=== PATIENT | female | born 1980 | race Caucasian/White ===

== ENCOUNTER 2016-09-07 18:01 | Emergency (ER) | payer OTHER ==
[2016-09-07 18:23] VITALS: BP 110/75; PULSE 100; TEMP 98.2; BMI 22.8
[2016-09-07] MEDS ORDERED: IBUPROFEN 600 MG TABLET (FP) PO ONE ×2 (18:24→19:06)
--- NOTE | 2016-09-07 19:25 | PDOC ---
[id number] 4d COLD SYMPTOMS Time Seen by Provider: 09/07/16 18:24 History Source: Patient Exam Limitations: No Limitations - History of Present Illness Initial Comments: 09/07/16 19:22 36-year-old female presents to the ED with URI symptoms. Patient with complaints of sore throat and body aches. Patient was assessed prior to my exam and rapid strep was ordered/sent. Patient states for the past 2-3 days has been having sore throat and possibly the back of her throat. Patient denies change in appetite but does state has difficulty swallowing solids secondary to discomfort. Patient states has been taking Motrin and Tylenol with moderate effect but does not resolve her symptoms and decided come to the ER. Patient denies medical history, recent travel, recent sick contacts. Timing/Duration: reports: getting worse Severity: reports: mild Associated Symptoms: reports: fever/chills, sore throat Past History - Past Medical History Allergies/Adverse Reactions: Allergies Allergy/AdvReac Type Severity Reaction Status Date / Time No Known Allergies Allergy Verified 09/07/16 18:20 Home Medications: Ambulatory Orders Penicillin V Potassium [Pen Vee K -] 500 mg PO BID #20 tablet 09/07/16 Anemia: No Asthma: No Cancer: No Cardiac Disorders: No CVA: No COPD: No CHF: No Dementia: No Diabetes: No GI Disorders: No Disorders: No HTN: No Hypercholesterolemia: No Liver Disease: No Seizures: No Thyroid Disease: No - Surgical History Abdominal Surgery: No Appendectomy: Yes Cardiac Surgery: No Cholecystectomy: No Lung Surgery: No Neurologic Surgery: No Orthopedic Surgery: No - Reproductive History (#): 3 Para: 2 Cervical CA: No Dysfunctional Uterine Bleeding: No Ectopic : No Endometrial CA: No Polycystic Ovaries: No Therapeutic (s) & number: No Tubal Ligation: No - Immunization History Immunization Up to Date: Yes - Psycho/Social/Smoking Cessation Hx Anxiety: No Suicidal Ideation: No Smoking Status: No Smoking History: Never smoked Have you smoked in the past 12 months: No Number of Cigarettes Smoked Daily: 0 Cigars Per Day: 0 Information on smoking cessation initiated: No Hx Alcohol Use: No Drug/Substance Use Hx: No Substance Use Type: None Patient Lives Alone: No Lives with/in: spouse/SO Review of Systems - Review of Systems Able to Perform ROS?: Yes Constitutional: Yes: Chills, Fever HEENTM: Yes: Throat Pain, Difficulty Swallowing Respiratory: No: Symptoms reported Cardiac (ROS): No: Symptoms Reported ABD/GI: No: Symptoms Reported : No: Symptoms Reported Musculoskeletal: No: Symptoms Reported Integumentary: No: Symptoms Reported Neurological: No: Symptoms reported *Physical Exam - Vital Signs Last Vital Signs Temp Pulse Resp BP Pulse Ox 98.2 F 100 H 18 110/75 100 09/07/16 18:20 09/07/16 18:20 09/07/16 18:20 09/07/16 18:20 09/07/16 18:20 - Physical Exam General Appearance: Yes: Nourished, Appropriately Dressed. No: Apparent Distress HEENT: positive: EOMI, DOR[place], TMs Normal, Tonsillar Exudate (with erythema to 2+ tonsils bilateral) Neck: positive: Supple. negative: Lymphadenopathy (R), Lymphadenopathy (L) Respiratory/Chest: positive: Lungs Clear, Normal Breath Sounds. negative: Respiratory Distress, Accessory Muscle Use Cardiovascular: positive: Regular Rhythm, Regular Rate. negative: Murmur Gastrointestinal/Abdominal: positive: Soft. negative: Tenderness Integumentary: positive: Normal Color, Warm, Moist Neurologic: positive: Motor Strength 5/5 (ambulatory) Medical Decision Making - Medical Decision Making 09/07/16 20:14 Patient with sore throat and fever/chills. Patient had rapid strep sent prior to my arrival. Patient on exam appears as tonsillitis/strep tonsillitis. Patient also ordered for Decadron secondary to edema. Results pending 09/07/16 20:36 Rapid strep still pending and patient does not want to wait. I will discharge patient home with JOSE M leonardo and told to follow-up with her PCP as needed otherwise return to ED if symptoms worsen. *DC/Admit/Observation/Transfer Diagnosis at time of Disposition: Strep tonsillitis - Discharge Dispostion Disposition: HOME Condition at time of disposition: Good - Prescriptions Prescriptions: Penicillin V Potassium [Pen Vee K -] 500 mg PO BID #20 tablet - Referrals Referrals: Delfino Ferrari MD [Primary Care Provider] - - Patient Instructions Printed Discharge Instructions: DI for Strep Throat Additional Instructions: Please take antibiotics until completed and eat soft nonabrasive foods. May take Motrin 600 mg every 8 hours for adequate fever and pain control. Return to ED if your symptoms worsen
[2016-09-07] MEDS ORDERED: DEXAMETHASONE LIQUID 0.5 MG/5 ML 240 ML BULK BOTTLE PO ONE (19:55)
[2016-09-07] MEDS ORDERED: DEXAMETHASONE SOD PHOSPHATE 10 MG/1 ML VIAL ONE (19:57)
[2016-09-07] MEDS ORDERED: AMOXICILLIN 250 MG CAPSULE ONE (20:55)
== END 2016-09-07 21:32 | disposition home or self-care (01) ==
LOC: JERFT 18:01
DX: J03.00 Acute streptococcal tonsillitis, unspecified (principal)
CPT/HCPCS: 84703; 87070; 87430; 99281-25

== ENCOUNTER 2018-02-10 05:05 | Day surgery (SDC) | payer OTHER ==
[2018-02-09 16:18] VITALS: BMI 23.1
--- NOTE | 2018-02-10 08:58 | HP ---
Admitting History and Physical - Admission Chief Complaint: Vaginal spotting in History of Present Illness: 38 yo seen yesterday c/o vaginal spotting; sonogram showed evidence of a gestational sac without pole. Patient is pre op for suction D&C. History Source: Patient Limitations to Obtaining History: No Limitations - Past Medical History ...LMP: 11/30/17 ...: Yes - Past Surgical History Past Surgical History: Yes: None - Smoking History Smoking history: Never smoked Have you smoked in the past 12 months: No Aproximately how many cigarettes per day: 0 - Alcohol/Substance Use Hx Alcohol Use: No - Social History Usual Living Arrangement: Yes: With Spouse History of Recent Travel: No Home Medications - Allergies Allergies/Adverse Reactions: Allergies Allergy/AdvReac Type Severity Reaction Status Date / Time No Known Allergies Allergy Verified 09/07/16 18:20 - Home Medications Home Medications: Ambulatory Orders 105/Iron/Folic AC/Dha [Prena1 True Combo Pack] 1 each PO DAILY Family Disease History - Family Disease History Family History: Unremarkable Review of Systems - Review of Systems Constitutional: reports: No Symptoms Eyes: reports: No Symptoms HENT: reports: No Symptoms Neck: reports: No Symptoms Cardiovascular: reports: No Symptoms Respiratory: reports: No Symptoms Gastrointestinal: reports: No Symptoms Genitourinary: reports: Other (Vaginal spotting in ) Physical Examination Vital Signs: Vital Signs Temperature 98.3 F 02/10/18 07:23 Pulse Rate 81 02/10/18 07:23 Respiratory Rate 20 02/10/18 07:23 Blood Pressure 104/64 02/10/18 07:23 O2 Sat by Pulse Oximetry (%) 98 02/10/18 07:24 Constitutional: Yes: Well Nourished Eyes: Yes: Conjunctiva Clear HENT: Yes: Atraumatic Neck: Yes: Supple Cardiovascular: Yes: Regular Rate and Rhythm Respiratory: Yes: Regular Gastrointestinal: Yes: Normal Bowel Sounds Extremities: Yes: WNL Neurological: Yes: Alert, Oriented ...Motor Strength: WNL Psychiatric: Yes: Alert, Oriented Assessment/Plan Missed Pre op for suction D&C Consent signed Anesthesia to see patient
[2018-02-10] MEDS ORDERED: MIDAZOLAM HCL 2 MG/2 ML SINGLE DOSE VIAL ONE (09:10)
[2018-02-10] MEDS ORDERED: SUCCINYLCHOLINE CHLORIDE 200 MG/10 ML VIAL ONE (09:12)
[2018-02-10] MEDS ORDERED: PROPOFOL 20 ML ONE (09:12)
--- NOTE | 2018-02-10 09:36 | OP ---
Operative Note - Note: Operative Date: 02/10/18 Pre-Operative Diagnosis: Missed Operation: Suction D&C Findings: Product of conception Post-Operative Diagnosis: Same as Pre-op Surgeon: Erinn Luciano Anesthesia: General Specimens Removed: Product of conception Estimated Blood Loss (mls): 10
[2018-02-10] MEDS ORDERED: ONDANSETRON 4 MG/2 ML VIAL IVPUSH PRN (09:51)
[2018-02-10] MEDS ORDERED: oxyCODONE HCL 5 MG TABLET PO PRN (09:51)
[2018-02-10] MEDS ORDERED: PROMETHAZINE HCL 25 MG/1 ML VIAL IVPUSH PRN (09:51)
[2018-02-10] MEDS ORDERED: LACTATED RINGERS SOLUTION 1,000 ML IV SCH (10:00)
[2018-02-10 11:50] VITALS: BP 103/69; PULSE 71; TEMP 98.9
--- NOTE | 2018-02-13 12:17 | PATH ---
Surgical Pathology Report Patient Name: NIKKI JARAMILLO Med. Rec. #: [id number] /Age/Gender: 1980 (Age: 38) / F Account: [id number] Location: [facility] Taken: 02/10/2018 Received: 02/10/2018 Reported: 02/13/2018 Physicians: Erinn Luciano M.D. Specimen(s) Received PRODUCTS OF CONCEPTION Clinical History Missed Final Diagnosis PRODUCTS OF CONCEPTION, DILATION AND CURETTAGE: IMMATURE CHORIONIC VILLI, DECIDUA WITH ACUTE INFLAMMATION, AND GESTATIONAL ENDOMETRIUM CONSISTENT WITH PRODUCTS OF CONCEPTION. Electronically Signed Kristin Bowden M.D. Gross Description Received in formalin labeled "products of conception," is an 11.0 x 8.5 x 1.0 cm aggregate of real red fragments of soft tissue. No definite villous tissue or somatic tissue is identified. 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 /02/10/2018 saudi/02/10/2018
--- NOTE | 2018-03-30 07:31 | OP ---
DATE OF OPERATION: 02/10/2018 PREOPERATIVE DIAGNOSIS: Missed . POSTOPERATIVE DIAGNOSIS: Missed . PROCEDURE PERFORMED: Suction dilatation and curettage. SURGEON: Erinn Luciano M.D. ANESTHESIA: General. COMPLICATIONS: None. ESTIMATED BLOOD LOSS: 10 mL. DESCRIPTION OF PROCEDURE: The patient was taken to the operating room, where general anesthesia was administered. The patient was then prepped and draped in the proper sterile fashion. She was placed in the lithotomy position. A weighted speculum was placed in the vagina. The anterior lip of the cervix was grasped with a single-toothed tenaculum. Then the cervical os was sequentially dilated with Lynn dilators. A suction curette was then gently introduced into the uterine cavity. The suction device was then activated and the curette rotated to clear the uterus of all products of conception. Sharp curettage was then performed. Then the instruments were removed. The patient was taken out of the lithotomy position. She was taken to the PACU in stable condition. PATHOLOGY: Products of conception. ERINN LUCIANO M.D. [id number]
== END 2018-02-10 11:50 | disposition home or self-care (01) ==
LOC: JASU-SURG 05:05
PROVIDERS: ATTEND Obstetrics & Gynecology
PROC: 10D17ZZ Extraction of Products of Conception, Retained, Via Natural or Artificial Opening (ICD-10-PCS; principal; 2018-02-10 08:30)
DX: O02.1 Missed abortion (principal)
CPT/HCPCS: 88305-TC; 94760

== ENCOUNTER 2018-06-20 16:45 | Emergency (ER) | payer OTHER ==
--- NOTE | 2018-06-20 16:55 | PDOC ---
Rapid Medical Evaluation Time Seen by Provider: 06/20/18 16:54 Medical Evaluation: Allergies Allergy/AdvReac Type Severity Reaction Status Date / Time No Known Allergies Allergy Verified 09/07/16 18:20 06/20/18 16:54 I have performed a brief in-person evaluation of this patient. The patient presents with a chief complaint of: Pertinent physical exam findings: I have ordered the following: The patient will proceed to the ED for further evaluation.
[2018-06-20 17:06] VITALS: BMI 24.9
--- NOTE | 2018-06-20 17:21 | PDOC ---
History of Present Illness - General Chief Complaint: Vaginal Bleeding Stated Complaint: VAGINAL BLEED (9 WEEKS ) Time Seen by Provider: 06/20/18 16:54 History Source: Patient - History of Present Illness Timing/Duration: reports: resolved prior to arrival Quality: reports: mild Past History - Past Medical History Allergies/Adverse Reactions: Allergies Allergy/AdvReac Type Severity Reaction Status Date / Time No Known Allergies Allergy Verified 09/07/16 18:20 Home Medications: Ambulatory Orders 105/Iron/Folic AC/Dha [Prena1 True Combo Pack] 1 each PO DAILY Anemia: No Asthma: No Cancer: No Cardiac Disorders: No CVA: No COPD: No CHF: No Dementia: No Diabetes: No GI Disorders: No Disorders: No HTN: No Hypercholesterolemia: No Liver Disease: No Seizures: No Thyroid Disease: No - Surgical History Abdominal Surgery: No Appendectomy: Yes Cardiac Surgery: No Cholecystectomy: No Lung Surgery: No Neurologic Surgery: No Orthopedic Surgery: No - Reproductive History (#): 3 Para: 2 Cervical CA: No Dysfunctional Uterine Bleeding: No Ectopic : No Endometrial CA: No Polycystic Ovaries: No Therapeutic (s) & number: No Tubal Ligation: No - Immunization History Immunization Up to Date: Yes - Suicide/Smoking/Psychosocial Hx Smoking Status: No Smoking History: Never smoked Have you smoked in the past 12 months: No Number of Cigarettes Smoked Daily: 0 Cigars Per Day: 0 Information on smoking cessation initiated: No Hx Alcohol Use: No Drug/Substance Use Hx: No Substance Use Type: None Hx Substance Use Treatment: No Review of Systems - Review of Systems Constitutional: No: Chills, Fever ABD/GI: No: Nausea, Vomiting, Abdominal cramping : No: Dysuria, Flank Pain, Hematuria *Physical Exam - Vital Signs Last Vital Signs Temp Pulse Resp BP Pulse Ox 98.4 F 74 18 112/83 100 06/20/18 17:04 06/20/18 17:04 06/20/18 17:04 06/20/18 17:04 06/20/18 17:04 - Physical Exam General Appearance: Yes: Appropriately Dressed. No: Apparent Distress HEENT: positive: Normal Voice Neck: positive: Supple Respiratory/Chest: negative: Respiratory Distress Female Pelvic Exam: positive: normal external exam, cervical os closed, normal adnexa, vaginal bleeding (moderate bleeding from Os), other (no obvious vaginal trauma). negative: adnexal tenderness Gastrointestinal/Abdominal: positive: Soft. negative: Tender Integumentary: positive: Dry, Warm Neurologic: positive: Fully Oriented, Alert, Normal Mood/Affect Moderate Sedation - Procedure Monitoring Vital Signs: Procedure Monitoring Vital Signs Temperature 98.4 F 06/20/18 17:04 Pulse Rate 74 06/20/18 17:04 Respiratory Rate 18 06/20/18 17:04 Blood Pressure 112/83 06/20/18 17:04 O2 Sat by Pulse Oximetry (%) 100 06/20/18 17:04 ED Treatment Course - RADIOLOGY Radiology Studies Ordered: Category Date Time Status TRANSVAGINAL US PREG [US] Stat Ultrasound 06/20/18 17:18 Ordered Medical Decision Making - Medical Decision Making 06/20/18 17:19 38 yo F, (s/p 1 spon AB 02/01), ~10 weeks per pt, with confirmed IUP/FHR on US last week in Dr Luciano's office, here w/ vaginal bleeding after sexual intercourse > 1 hr ago with , that has since improved. No abd pain, dysuria, n/v/f/c See exam Threatened AB Confirmed IUP/FHR on recent OB US per pt O+ on multiple T&S at [facility] on chart review Abd benign w/ moderate vag bleed, Os closed -beta quant -UA -US 06/20/18 17:58 06/20/18 19:00 Beta >102K w/ clean UA. Pt signed out to KENDRA Prado pending US 06/20/18 19:06 *DC/Admit/Observation/Transfer - Referrals Referrals: Erinn Luciano MD [Primary Care Provider] - - Patient Instructions - Post Discharge Activity
[2018-06-20 18:52] LABS: URINE APPEARANCE CLOUDY; URINE BILIRUBIN NEGATIVE (<2.0 mg/dL); URINE COLOR LTYELLOW; URINE GLUCOSE (UA) NEGATIVE (NEGATIVE); URINE KETONE NEGATIVE (NEGATIVE); URINE LEUK ESTERASE NEGATIVE (NEGATIVE); URINE NITRITE NEGATIVE (NEGATIVE); URINE PROTEIN NEGATIVE (NEGATIVE); URINE UROBILINOGEN NEGATIVE mg/dL (0.2-1.0)
[2018-06-20 18:57] LABS: EPI CELLS RARE /HPF (FEW); URINE MUCUS RARE; YEAST MANY
[2018-06-20 19:49] VITALS: BP 103/67; PULSE 71; TEMP 98.5
--- NOTE | 2018-06-20 20:43 | PDOC ---
*Physical Exam - Vital Signs Last Vital Signs Temp Pulse Resp BP Pulse Ox 98.5 F 71 18 103/67 100 06/20/18 19:05 06/20/18 19:05 06/20/18 19:05 06/20/18 19:05 06/20/18 19:05 ED Treatment Course - ADDITIONAL ORDERS Additional order review: Laboratory Results 06/20/18 06/20/18 18:42 17:30 Beta HCG, Quant [id number] Urine Color Ltyellow Urine Appearance Cloudy Urine pH 8.0 Ur Specific Reedy 1.011 Urine Protein Negative Urine Glucose (UA) Negative Urine Ketones Negative Urine Blood 1+ H Urine Nitrite Negative Urine Bilirubin Negative Urine Urobilinogen Negative Ur Leukocyte Esterase Negative Urine WBC (Auto) 1 Urine RBC (Auto) 4 Ur Epithelial Cells Rare Urine Mucus Rare Urine Yeast Many Medical Decision Making - Medical Decision Making Patient signed out to be my PA Gabby Patient mentions feeling fine; states bleeding has improved a bit Ultrasound results: REPORT: Single intrauterine gestational sac is identified, with yolk sac and pole and cardiac activity. No abnormal fluid collections seen. heart rate is 192. Estimated gestational age 10 weeks 2 days. No solid adnexal mass seen. Appropriate arterial and venous waveforms at left ovary. Right ovary is not visualized. Cervix appears closed. Likely threatened Recommended pelvic rest stable for d/c 06/20/18 20:38 *DC/Admit/Observation/Transfer Diagnosis at time of Disposition: Threatened - Discharge Dispostion Disposition: HOME - Referrals Referrals: Erinn Luciano MD [Primary Care Provider] - 3 days - Patient Instructions Printed Discharge Instructions: DI for Threatened Additional Instructions: Thank you for choosing [facility]. It was a pleasure taking care of you. You were seen here for vaginal bleeding Your ultrasound shows that your is fine at this time You may be at risk for miscarriage Recommend pelvic rest. Avoid sexual intercourse Follow-up with your [employer] doctor in 2 days. Return to the Emergency Department if your symptoms worsen or persist, you have fever, shortness of breath, chest pain, severe abdominal pain, vomiting, heavy bleeding or other concerning symptoms. - Post Discharge Activity
== END 2018-06-20 21:33 | disposition home or self-care (01) ==
LOC: JER 16:45
DX: O26.891 Other specified pregnancy related conditions, first trimester (principal); O20.0 Threatened abortion; Z3A.10 10 weeks gestation of pregnancy
CPT/HCPCS: 36415; 76801-TC; 81003; 81015; 84702; 99283-25